=== PATIENT | female | born 1960 | race Caucasian/White ===

== ENCOUNTER 2023-10-06 15:18 | Emergency (ER) | payer OTHER, SELFPAY ==
--- NOTE | 2023-10-06 15:20 | ECG_ITS ---
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 Measurements Intervals [place] Rate: 74 P: 31 AL: 177 QRS: 3 QRSD: 89 T: 17 QT: 412 QTc: 459 Interpretive Statements SINUS RHYTHM ST DEVIATION AND MODERATE T-WAVE ABNORMALITY, CONSIDER LATERAL ISCHEMIA [-0.1+ mV T-WAVE IN I/aVL/V5/V6] No previous ECG available for comparison Electronically Signed On 10-06-2023 16:02:40 CDT by Kel Bradley M.D. [email or web address]
--- NOTE | 2023-10-06 15:20 | XRR_ITS ---
PROCEDURE INFORMATION: Exam: XR Chest Exam date and time: 10/06/2023 3:37 PM Age: 62 years old Clinical indication: Chest pressure; Patient HX: Mediasatinal chest pain; Nausea TECHNIQUE: Imaging protocol: Radiologic exam of the chest. Views: 1 view. COMPARISON: No relevant prior studies available. FINDINGS: Lungs: Lungs are clear bilaterally. Calcified granuloma in the right upper lobe. Pleural spaces: No pleural effusion. No pneumothorax. Heart/Mediastinum: The cardiac silhouette is mildly enlarged. Mediastinal contours are unremarkable. Bones/joints: Unremarkable for age. XR/XR chest 1V portable [id number] IMPRESSION: 1. No acute cardiopulmonary process. 2. Incidental/nonacute findings are listed in the report.
[2023-10-06 15:21] VITALS: BP 147/84; PULSE 73; RESP 16; TEMP 36.4; O2SAT 98
--- NOTE | 2023-10-06 15:36 | ED_ITS ---
HPI - Headache 2 General: Chief Complaint: Headache Stated Complaint: migraine Time Seen by Provider: 10/06/23 15:29 Source: patient Mode of arrival: ambulatory Limitations: no limitations History of Present Illness: 62-year-old female states she woke up wi th a headache this morning. States she has a history of migraines and this feels similar she states its progressively worsened throughout the day she has had some nausea and vomiting. States she has had some slight chest pain along with epigastric pain states that subsided her headache continues. She has photophobia and phonophobia. Associated symptoms: Reports chest pain and nausea; Deny fever(s), rash or vomiting Review of Systems 2 Const: Denies: fever(s), chills, body aches or change in appetite Eyes: Denies: blurry vision or eye discomfort ENMT: Denies: throat pain or dental pain Card: Reports: chest pain Resp: Denies: dyspnea GI: Reports: abdominal pain and nausea; Denies: vomiting or diarrhea Musc: Denies: neck pain or back pain Skin/Breast: Denies: rash Neuro: Reports: headache(s) PFSH ED 2 PFSH: Social History Smoking and tobacco/nicotine status: unknown if used tobacco/nicotine Physical Exam 2 Const: COMMON NORMALS: no acute distress, patient oriented x3 and healthy appearing HENMT: COMMON NORMALS: normocephalic and atraumatic HEAD & SCALP: n ormocephalic and atraumatic Eye: COMMON NORMALS: Equal, round and reactive pupils present and EOMs intact bilaterally PUPIL: Yes Equal, round and reactive pupils present Neck/C-Spine: COMMON NORMALS: full ROM and supple Chest: COMMONS NORMALS: normal inspection of the chest and normal palpation of entire chest wall Resp: COMMON NORMALS: normal respiratory effort, No retractions, No use of accessory muscles and clear to auscultation bilaterally AUSCULTATION: clear to auscultation bilaterally Cardio: COMMON NORMALS: regular rate, regular rhythm and No murmurs present (Cardio) RATE: regular rate RHYTHM: regular rhythm GI: COMMON NORMALS: Normal to inspection, nondistended, normoactive bowel sounds present, Soft to palpation, non-tender and no masses PALPATION: Yes Soft to palpation Extremity: COMMON NORMALS: normal to inspection and full ROM Neuro: COMMON NORMALS: patient oriented x3, moves all extremities and no focal motor deficits Psych: COMMON NORMALS: mental status grossly normal, Normal thought process present and cooperative THOUGHT PROCESS: Normal thought process present Skin: COMMON NORMALS: no rashes or lesions noted and no wounds GENERAL SKIN EXAM: no rashes or lesions noted Course 2 Vital Signs: Vital signs: Vital Signs Temperature 97.5 F L 10/06/23 15:21 Pulse Rate 66 10/06/23 17:00 Respiratory Rate 16 10/06/23 16:25 Blood Pressure 133/71 10/06/23 17:00 Pulse Oximetry 96 10/06/23 17:00 Oxygen Delivery Me thod Room Air 10/06/23 17:00 MDM - Headache Medical Decision Making Patient presents here with a headaches likely migraine headache it is possible to previous migraines her head CT here is normal she did complain of some chest pain but is very atypical and she states that lasted just seconds and had nausea with her headache for her troponin here is normal no signs of ACS she is stable for discharge she is much improved she is follow-up with PCP and return if worsening she understands. Medical Records I reviewed the patient's medical records. Lab Data I reviewed the patient's lab results. 10/06/23 15:35 10/06/23 15:35 Radiology Impressions Chest X-Ray 10/06/23 15:20 IMPRESSION: 1. No acute cardiopulmonary process. 2. Incidental/nonacute findings are listed in the report. Head CT 10/06/23 16:20 IMPRESSION: 1. No acute abnormality of the brain. 2. Incidental/nonacute findings are listed in the report. Laboratory Results WBC 7.31 10^3/uL (3.29-11.43) 10/06/23 15:35 RBC 4.51 10^6/uL (3.85-5.65) 10/06/23 15:35 Hgb 13.50 g/dL (11.27-16.99) 10/06/23 15:35 Hct 40.8 % (36-47) 10/06/23 15:35 MCV 90.5 fl (85-98) 10/06/23 15:35 MCH 29.9 pg (27-33) 10/06/23 15:35 MCHC 33.1 g/dL (30-55) 10/06/23 15:35 RDW 12.8 % (12.1-15.1) 10/06/23 15:35 Plt Count 264 10^3/cmm (157-399) 10/06/23 15:35 MPV 10.5 fL (7.4-10.4) H 10/06/23 15:35 Neut % (Auto) 79.6 % 10/06/23 15:35 Lymph % (Auto) 16.4 % 10/06/23 15:35 [place] % (Auto) 2.9 % 10/06/23 15:35 Eos % (Auto) 0.4 % 10/06/23 15:35 Baso % (Auto) 0.4 % 10/06/23 15:35 Neut # (Auto) 5.82 10^3/uL (1.8-7.7) 10/06/23 15:35 Lymph # (Auto) 1.2 10^3/uL (0.8-4.8) 10/06/23 15:35 [place] # (Auto) 0.2 10^3/uL (0.2-0.9) 10/06/23 15:35 Eos # (Auto) 0.0 10^3/uL (0.0-0.8) 10/06/23 15:35 Baso # (Auto) 0.0 10^3/uL (0.0-0.1) 10/06/23 15:35 Nucleated RBC % (auto) 0 % 10/06/23 15:35 Nucleated RBCs # 0.0 /100WBC 10/06/23 15:35 Sodium 137 mmol/L (136-145) 10/06/23 15:35 Potassium 4.1 mmol/L (3.5-5.1) 10/06/23 15:35 Chloride 101 mmol/L (98-107) 10/06/23 15:35 Carbon Dioxide 25 mmol/L (22-29) 10/06/23 15:35 Anion Gap 15.1 (5-19) 10/06/23 15:35 BUN 13 mg/dL (8-23) 10/06/23 15:35 Creatinine 0.6 mg/dL (0.5-0.9) 10/06/23 15:35 GFR Calculation 101.3 mL/min (90-130) 10/06/23 15:35 Glucose 130 mg/dL (65-115) H 10/06/23 15:35 Calculated Osmolality 286 mOsm/kg (285-295) 10/06/23 15:35 Calcium 9.4 mg/dL (8.5-10.5) 10/06/23 15:35 Total Bilirubin 0.3 mg/dL (0.15-1.2) 10/06/23 15:35 AST 19 U/L (0-32) 10/06/23 15:35 ALT 19 U/L (0-33) 10/06/23 15:35 Alkaline Phosphatase 121 U/L (35-105) H 10/06/23 15:35 Troponin T Baseline < 6 ng/L (0-10) 10/06/23 15:35 Total Protein 8.1 g/dL (6.6-8.7) 10/06/23 15:35 Albumin 4.3 g/dL (3.5-5.2) 10/06/23 15:35 Globulin 3.8 g/dL (1.3-4.6) 10/06/23 15:35 Lipase 26 U/L (13-60) 10/06/23 15:35 All radiology interpretation(s) finalized by discharge Discharge Plan Discharge Patient Disposition: Home Clinical Impression: Headache Condition: Stable Prescriptions: No Action Ocuvite Adult 50 Plus 250 mg (90 mg-160 mg) capsule 1 cap PO DAILY amoxicillin-pot clavulanate 875-125 mg tablet 1 tab PO BID sulfamethoxazole-trimethoprim 800-160 mg tablet 1 tab PO BID 10 Days Qty: 20 0RF Discharge Orders: Discharge ED (Routine); Ordered 10/06/23 Ordered By: Brenton Reilly Discharge Diet: Advance as tolerated Discharge Activity: Resume usual activity Patient Instructions: General Headache (ED) Coding Level of Care Code ED [employer] Vulnerability Analyst for Mercedes Mims
[2023-10-06 15:40] LABS: Basophils % 0.4 %; Eosinophils % 0.4 %; Hematocrit 40.8 % (36-47); Lymphocytes # 1.2 10^3/uL (0.8-4.8); Lymphocytes % 16.4 %; Mean Corpuscular HGB Conc 33.1 g/dL (30-55); Mean Corpuscular Hemoglobin 29.9 pg (27-33); Mean Corpuscular Volume 90.5 fl (85-98); Mean Platelet Volume 10.5 fL (7.4-10.4); Monocytes # 0.2 10^3/uL (0.2-0.9); Monocytes % 2.9 %; Neutrophils # 5.82 10^3/uL (1.8-7.7); Neutrophils % 79.6 %; Nucleated Red Blood Cells % 0 %; Platelet Count 264 10^3/cmm (157-399); Red Blood Count 4.51 10^6/uL (3.85-5.65); Red Cell Distribution Width 12.8 % (12.1-15.1); White Blood Count 7.31 10^3/uL (3.29-11.43)
[2023-10-06] MEDS: sodium chloride 0.9% 1,000 ML 999 ML IV (15:44)
[2023-10-06] MEDS: metoclopramide 5 mg/mL SDV 2 mL IVP (15:45)
[2023-10-06] MEDS: diphenhydrAMINE 50 mg/mL SDV 1mL 25 MG IVP (15:49)
[2023-10-06 15:52] VITALS: PULSE 68; O2SAT 97
[2023-10-06 16:03] LABS: Alanine Aminotransferase 19 U/L (0-33); Albumin Level 4.3 g/dL (3.5-5.2); Alkaline Phosphatase 121 U/L (35-105); Anion Gap 15.1 (5-19); Aspartate Amino Transferase 19 U/L (0-32); Blood Urea Nitrogen 13 mg/dL (8-23); Calcium 9.4 mg/dL (8.5-10.5); Carbon Dioxide 25 mmol/L (22-29); Chloride 101 mmol/L (98-107); Creatinine Clr Calc Pharmacy 119.4345; Globulin 3.8 g/dL (1.3-4.6); Glomerular Filtration Rate 101.3 mL/min (90-130); Glucose 130 mg/dL (65-115); Lipase 26 U/L (13-60); Osmolality Calculated 286 mOsm/kg (285-295); Potassium 4.1 mmol/L (3.5-5.1); Sodium 137 mmol/L (136-145); Total Bilirubin 0.3 mg/dL (0.15-1.2); Total Protein 8.1 g/dL (6.6-8.7)
[2023-10-06 16:04] LABS: Troponin(5th) Baseline < 6 ng/L (0-10)
--- NOTE | 2023-10-06 16:20 | CTR_ITS ---
PROCEDURE INFORMATION: Exam: CT Head Without Contrast Exam date and time: 10/06/2023 4:37 PM Age: 62 years old Clinical indication: Pain; Headache; Migraine; Additional info: IBARRA TECHNIQUE: Imaging protocol: Computed tomography of the head without contrast. Sagittal and coronal reformatted images were created and reviewed. Radiation optimization: All CT scans at this facility use at least one of these dose optimization techniques: automated exposure control; mA and/or kV adjustment per patient size (includes targeted exams where dose is matched to clinical indication); or iterative reconstruction. COMPARISON: No relevant prior studies available. RADIATION DOSE METRICS: Total DLP (mGy-cm): 1053.8 FINDINGS: Brain: No acute intracranial hemorrhage. No acute infarct. No intra-axial or extra-axial masses. Mistry-white matter differentiation is preserved. No cerebral edema. No extra-axial fluid collections. No midline shift. No evidence for Chiari 1 malformation. Cerebral ventricles: No hydrocephalus. Paranasal sinuses: Visualized paranasal sinuses are clear. Mastoid air cells: Visualized mastoid air cells are clear. Orbital cavities: Globes and lenses, extraocular muscles, and optic nerves are intact bilaterally. No acute intraorbital abnormality. Nasal cavity: Mild left nasal septal deviation. Bones: Unremarkable. No acute fracture. Soft tissues: The extracranial soft tissues are unremarkable. CT/CT head wo con* [id number] IMPRESSION: 1. No acute abnormality of the brain. 2. Incidental/nonacute findings are listed in the report.
[2023-10-06 16:25] VITALS: RESP 16; O2SAT 99
[2023-10-06] MEDS: morphine 4 mg/mL SDV 1 mL IVP (16:25)
[2023-10-06 16:27] VITALS: BP 132/73; PULSE 68; O2SAT 97
[2023-10-06 17:00] VITALS: BP 133/71; PULSE 66; O2SAT 96
[2023-10-06 17:13] VITALS: PULSE 69; O2SAT 96
== END 2023-10-06 17:14 | disposition home or self-care (01) ==
PROVIDERS: Emergency Provider Emergency Medicine
DX: R51.9 Headache, unspecified (principal)
CPT/HCPCS: 70450; 71045; 80053; 83690; 84484; 85025; 93005; 96361; 96374; 96375; 99285; J1200; J2270; J2765; J7030

== ENCOUNTER 2024-04-30 09:59 | Outpatient (CLI) | payer OTHER, SELFPAY ==
--- NOTE | 2024-04-30 10:00 | MM_ITS ---
WS: [id number] Bilateral screening 3D tomosynthesis digital mammogram, 04/30/2024 10:06 AM Clinical Data: screening Comparison: None. Findings: No spiculated masses or clustered calcifications are seen. There are no secondary signs of carcinoma. MM/MM scr BI tomosynthesis [id number] Impression: Negative bilateral mammogram with no prior exam for review. Recommend annual screening mammograms. BIRADS: 1 - Negative. FOLLOW UP: 1 Year Follow-up DENSITY: The breasts are almost entirely fatty. The CAD production checker was used
== END 2024-04-30 10:00 | disposition home or self-care (01) ==
LOC: MOBLMAM 10:04
PROVIDERS: PCP Family Medicine; Visit Provider Family Medicine
DX: Z12.31 Encounter for screening mammogram for malignant neoplasm of breast (principal); R92.313 Mammographic fatty tissue density, bilateral breasts
CPT/HCPCS: 77063; 77067

== ENCOUNTER → 2024-10-29 09:17 | Outpatient (BNVA) | payer BC, SELFPAY | PROVIDERS: PCP Family Medicine; Visit Provider Family Medicine | DX: Z00.00 Encounter for general adult medical examination without abnormal findings (principal) | CPT/HCPCS: 80053; 80061; 84443; 85025 ==

== ENCOUNTER → 2025-02-28 14:18 | Outpatient (BNVA) | payer BC, SELFPAY | PROVIDERS: PCP Family Medicine; Visit Provider Registered Nurse Neonatal Intensive Care | DX: J02.9 Acute pharyngitis, unspecified (principal) | CPT/HCPCS: 87880 ==